=== PATIENT | male | born 1945 | race Caucasian/White ===

== ENCOUNTER 2020-10-31 09:04 | Observation (INO) | payer MEDICARE, SELFPAY ==
[2020-10-31] VITALS (14 sets, daily range): BP systolic 161–203; BP diastolic 82–122; PULSE 72–90; RESP 14–18; TEMP 36.4–36.8; O2SAT 95–100; BMI 24.0
--- NOTE | 2020-10-31 09:20 | ECG_ITS ---
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 Measurements Intervals [place] Rate: 75 P: 34 IN: 162 QRS: 8 QRSD: 98 T: 58 QT: 396 QTc: 445 Interpretive Statements SINUS RHYTHM INCOMPLETE RIGHT BUNDLE BRANCH BLOCK [90+ ms QRS DURATION, TERMINAL R IN V1/V2, 40+ ms S IN I/aVL/V4/V5/V6] No previous ECG available for comparison Electronically Signed On 10-31-2020 19:14:38 CDT by Clark Stephens M.D. [email or web address] gulfportChroma Energyglenbeigh [email or web address]/store/[id number] f
--- NOTE | 2020-10-31 09:20 | XR_ITS ---
WS: [id number] Exam: XR chest 1V portable [id number] Date/Time of Exam: 10/31/2020 9:25 AM Reason For Exam: chest pain Comparison 04/14/2013. The lungs are fully expanded. No acute infiltrates are seen. No pleural effusions. The mediastinum an d osseous thorax are unremarkable. Chronic interstitial changes. XR/XR chest 1V portable [id number] IMPRESSION: 1. No acute cardiopulmonary finding.
--- NOTE | 2020-10-31 09:45 | ED_ITS ---
HPI - Chest Pain General: Chief Complaint: Chest Pain Stated Complaint: HEART RACING/ SHOULDER PAIN/ HTN Time Seen by Provider: 10/31/20 09:06 History of Present Illness: HPI narrative: 75-year-old male comes in complaining of left shoulder pain. 4 days ago he was hauling some bricks he was loading of bricks to move them while he was doing that he did not have any chest pain or shortness of breath. He stated about 8 hours later he started having some left shoulder pain. He did not get short of breath with it did not get sick to his stomach or diaphoretic. He still has some discomfort in his left shoulder with particular movements but if he rests he has no significant pain. He does have a history of hypertension is extremely hypertensive on arrival here is not been taking any medicines for about the last 6 to 7 years. He denies any chest pain with exertion. He denies any history of heart disease he is not diabetic. Onset (ago): day(s) Timing of current episode: episodic Onset: other (8 hours after heavy lifting) Pain location: other (Left shoulder only with range of motion) Relieving factors: remaining still Exacerbating factors: movement (Movement of the left shoulder especially extension or adduction across the chest) Associated symptoms: Deny abdominal pain, diaphoresis, dyspnea, fever(s), leg edema, nausea, palpitations, sense of impending doom, syncope or vomiting Review of Systems Const: Denies: fever(s) or diaphoresis ENMT: Denies: throat pain, ear or mastoid pain, nasal discharge or nasal congestion Card: Denies: palpitations or syncope Resp: Denies: dyspnea GI: Denies: abdominal pain, nausea or vomiting : Denies: flank pain, dysuria, urinary frequency or urinary urgency Skin/Breast: Denies: rash or pruritus PFS ED PFSH: Medical History Hypertension Physical Exam Const: COMMON NORMALS: no acute distress GENERAL APPEARANCE: cooperative and comfortable ORIENTATION/CONSCIOUSNESS: Yes awake, Yes oriented to person, Yes oriented to place and Yes oriented to time HENMT: COMMON NORMALS: normocephalic, atraumatic, hearing grossly normal bilaterally, external ears normal, EAC's normal, TM's normal bilaterally, Normal nasal mucous membranes and turbinates present, moist oral mucous membranes and oropharynx normal HEAD & SCALP: normocephalic and atraumatic NOSE: Normal nasal mucous membranes and turbinates present EXTERNAL EAR: Yes external ears normal EXTERNAL AUDITORY CANAL: EAC's normal TYMPANIC MEMBRANE: TM's normal bilaterally Eye: COMMON NORMALS: Equal, round and reactive pupils present, EOMs intact bilaterally, conjunctivae normal and no scleral icterus CONJUNCTIVA: Yes conjunctivae normal PUPIL: Yes Equal, round and reactive pupils present Neck/C-Spine: COMMON NORMALS: full ROM, no lymphadenopathy, supple and no JVD Lymph: LYMPHATIC: no lymphadenopathy noted and no lymphedema noted Resp: COMMON NORMALS: normal respiratory effort, No retractions, No use of accessory muscles and clear to auscultation bilaterally AUSCULTATION: clear to auscultation bilaterally Cardio: COMMON NORMALS: no JVD, regular rate, regular rhythm and No murmurs present (Cardio) RATE: regular rate RHYTHM: regular rhythm GI: COMMON NORMALS: Soft to palpation and No hepatosplenomegaly present AUSCULTATION: Yes normoactive bowel sounds PALPATION: Yes Soft to palpation, No Tenderness to palpation present (GI), No Guarding due to palpation present (GI) and Yes No hepatosplenomegaly present Extremity: COMMON NORMALS: normal to inspection, capillary refill normal, no clubbing, cyanosis or edema, no calf tenderness and no pedal edema NARRATIVE EXTREMITY EXAM: Pain with palpation over the biceps tendon at the subtendon groove, negative impingement sign on internal or external rotation Neuro: SENSORIUM/ORIENTATION: Yes oriented to person, Yes oriented to place and Yes oriented to time Skin: COMMON NORMALS: no rashes or lesions noted GENERAL SKIN EXAM: no rashes or lesions noted Course Vital Signs: Vital signs: Vital Signs Temperature 97.6 F 11/01/20 15:31 Pulse Rate 83 11/01/20 15:31 Respiratory Rate 18 11/01/20 15:31 Blood Pressure 166/96 11/01/20 15:31 Pulse Oximetry 97 11/01/20 15:31 MDM - Chest Pain MDM Narrative: Medical decision making narrative: Discussed results we will discharge the patient home if he has any recurrent symptoms return. We will also increase his blood pressure medicines. I believe the discomfort he is getting is primarily from his biceps tendon. Lab Data: Labs: Lab Results 10/31/20 10/31/2021 Range/Units 09:45 09:45 09:45 WBC 6.5 (4.0-10.0) 10^3/ uL RBC 5.13 (4.1-5.3) 10^6/u L Hgb 16.6 (11.7-16.6) g/dL Hct 48.0 (42.0-52.0) % MCV 93.6 (80-94) fL MCH 32.4 (28.0-34.0) pg MCHC 34.6 (30.0-36.0) g/dL RDW 11.2 L (12.1-15.1) % Plt Count 204 (130-400) 10^3/c mm MPV 10.5 H (7.4-10.4) fL Neut % (Auto) 52.8 % Lymph % (Auto) 35.2 % [place] % (Auto) 8.7 % Eos % (Auto) 2.0 % Baso % (Auto) 0.8 % Neut # (Auto) 3.41 (1.8-7.7) 10^3/u L Lymph # (Auto) 2.3 (0.8-4.8) 10^3/u L [place] # (Auto) 0.6 (0.2-0.9) 10^3/u L Eos # (Auto) 0.1 (0.0-0.8) 10^3/u L Baso # (Auto) 0.1 (0.0-0.1) 10^3/u L Nucleated RBC % (a uto) 0 % Nucleated RBCs # 0.0 /100WBC Sodium 140 (136-145) mmol/L Potassium 4.1 (3.5-5.1) mmol/L Chloride 103 (98-107) mmol/L Carbon Dioxide 26 (22-29) mmol/L Anion Gap 15.1 (5-19) BUN 14 (8-23) mg/dL Creatinine 0.9 (0.7-1.2) mg/dL GFR Calculation Not Reportable Glucose 144 H (65-115) mg/dL Calculated Osmolal ity 293 (285-295) mOsm/k g Calcium 8.8 (8.5-10.5) mg/dL Total Bilirubin 0.5 (0.15-1.2) mg/dL AST 25 (0-40) U/L ALT 27 (0-41) U/L Alkaline Phosphata se 84 (40-130) IU/L Troponin T Baselin e 11 (0-15) ng/L Troponin T 120 Min reema (0-15) ng/L Delta Troponin T (0-10) ABS# Total Protein 7.3 (6.6-8.7) g/dL Albumin 4.3 (3.5-5.2) g/dL Globulin 3.0 (1.3-4.6) g/dL 10/31/20 Range/Units 11:28 WBC (4.0-10.0) 10^3/ uL RBC (4.1-5.3) 10^6/u L Hgb (11.7-16.6) g/dL Hct (42.0-52.0) % MCV (80-94) fL MCH (28.0-34.0) pg MCHC (30.0-36.0) g/dL RDW (12.1-15.1) % Plt Count (130-400) 10^3/c mm MPV (7.4-10.4) fL Neut % (Auto) % Lymph % (Auto) % [place] % (Auto) % Eos % (Auto) % Baso % (Auto) % Neut # (Auto) (1.8-7.7) 10^3/u L Lymph # (Auto) (0.8-4.8) 10^3/u L [place] # (Auto) (0.2-0.9) 10^3/u L Eos # (Auto) (0.0-0.8) 10^3/u L Baso # (Auto) (0.0-0.1) 10^3/u L Nucleated RBC % (a uto) % Nucleated RBCs # /100WBC Sodium (136-145) mmol/L Potassium (3.5-5.1) mmol/L Chloride (98-107) mmol/L Carbon Dioxide (22-29) mmol/L Anion Gap (5-19) BUN (8-23) mg/dL Creatinine (0.7-1.2) mg/dL GFR Calculation Glucose (65-115) mg/dL Calculated Osmolal ity (285-295) mOsm/k g Calcium (8.5-10.5) mg/dL Total Bilirubin (0.15-1.2) mg/dL AST (0-40) U/L ALT (0-41) U/L Alkaline Phosphata se (40-130) IU/L Troponin T Baselin e (0-15) ng/L Troponin T 120 Min reema 15.45 H (0-15) ng/L Delta Troponin T 4.45 (0-10) ABS# Total Protein (6.6-8.7) g/dL Albumin (3.5-5.2) g/dL Globulin (1.3-4.6) g/dL Discharge Plan Discharge Patient Disposition: Home Clinical Impression: Atypical chest pain, Hypertension, Biceps tendinitis of left shoulder Condition: Stable Discharge Orders: Discharge Order (Routine); Ordered 11/01/20 Ordered By: Danyell Bonilla Discharge ED (Routine); Ordered 10/31/20 Ordered By: Jesse Haro Discharge Diet: Usual diet Discharge Activity: Limit activity as instructed Coding Level of Care Code ED Kindergartner for Rupeshg Fwd Exam Comprehensive
--- NOTE | 2020-10-31 09:48 | XR_ITS ---
WS: [id number] Exam: XR shoulder LT min 2V* [id number] Date/Time of Exam: 10/31/2020 9:52 AM Reason For Exam: Pain No acute fracture or dislocation noted. 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 Norm al soft tissues. XR/XR shoulder LT min 2V* [id number] IMPRESSION: 1. Moderate degenerative changes. No fracture.
[2020-10-31 09:57] LABS: Basophils # 0.1 10^3/uL (0.0-0.1); Basophils % 0.8 %; Eosinophils # 0.1 10^3/uL (0.0-0.8); Hemoglobin 16.6 g/dL (11.7-16.6); Lymphocytes # 2.3 10^3/uL (0.8-4.8); Lymphocytes % 35.2 %; Mean Corpuscular HGB Conc 34.6 g/dL (30.0-36.0); Mean Corpuscular Hemoglobin 32.4 pg (28.0-34.0); Mean Corpuscular Volume 93.6 fL (80-94); Mean Platelet Volume 10.5 fL (7.4-10.4); Monocytes # 0.6 10^3/uL (0.2-0.9); Monocytes % 8.7 %; Neutrophils # 3.41 10^3/uL (1.8-7.7); Neutrophils % 52.8 %; Nucleated Red Blood Cells % 0 %; Platelet Count 204 10^3/cmm (130-400); Red Blood Count 5.13 10^6/uL (4.1-5.3); Red Cell Distribution Width 11.2 % (12.1-15.1); White Blood Count 6.5 10^3/uL (4.0-10.0)
[2020-10-31 10:20] LABS: Alanine Aminotransferase 27 U/L (0-41); Albumin Level 4.3 g/dL (3.5-5.2); Alkaline Phosphatase 84 IU/L (40-130); Anion Gap 15.1 (5-19); Aspartate Amino Transferase 25 U/L (0-40); Blood Urea Nitrogen 14 mg/dL (8-23); Calcium 8.8 mg/dL (8.5-10.5); Carbon Dioxide 26 mmol/L (22-29); Chloride 103 mmol/L (98-107); Glucose 144 mg/dL (65-115); Osmolality Calculated 293 mOsm/kg (285-295); Potassium 4.1 mmol/L (3.5-5.1); Sodium 140 mmol/L (136-145); Total Bilirubin 0.5 mg/dL (0.15-1.2); Total Protein 7.3 g/dL (6.6-8.7)
[2020-10-31 10:21] LABS: Troponin(5th) Baseline 11 ng/L (0-15)
--- NOTE | 2020-10-31 11:20 | ECG_ITS ---
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 Measurements Intervals [place] Rate: 71 P: 38 MD: 174 QRS: 22 QRSD: 92 T: 68 QT: 413 QTc: 450 Interpretive Statements SINUS RHYTHM Compared to ECG 10/31/2020 09:36:27 Incomplete right bundle-branch block no longer present Electronically Signed On 10-31-2020 19:16:52 CDT by Clark Stephens M.D. [id number]
[2020-10-31 12:13] LABS: Troponin 5 2HR 15.45 ng/L (0-15); Troponin 5 2HR Delta 4.45 ABS# (0-10)
[2020-10-31] MEDS: ketorolac 30 mg/mL INJ 15 MG IVP (12:36)
--- NOTE | 2020-10-31 15:03 | PC.NURSE ---
Report called to Mile CONNORS.
--- NOTE | 2020-10-31 15:20 | ECG_ITS ---
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 Measurements Intervals [place] Rate: 74 P: 55 MT: 178 QRS: 45 QRSD: 89 T: 68 QT: 399 QTc: 443 Interpretive Statements SINUS RHYTHM WITH SINUS ARRHYTHMIA Compared to ECG 10/31/2020 12:32:17 No significant changes Electronically Signed On 11-09-2020 12:29:13 CDT by Dionne Camara M.D. [email or web address] [id number]
[2020-10-31] MEDS: amlodipine 10 mg Tablet PO (15:29)
[2020-10-31 17:11] LABS: Troponin 5 6HR 11.09 ng/L (0-15); Troponin 5 6HR Delta 0.09 ng/L (0-12)
--- NOTE | 2020-10-31 18:40 | PC.NURSE ---
Report to Riley MEYER at this time. Updated Riley that at 1730 Dr. Bonilla was notified about patient's high blood pressure and stated that she would put in more medication orders. No new orders have been received at this time.
--- NOTE | 2020-10-31 19:11 | PM.HP ---
Providers/Chief Complaint Admitting Physician: Danyell Bonilla MD Primary Care Provider: CECILIA AdameP-C Chief Complaint: HEART RACING/ SHOULDER PAIN/ HTN History of Present Illness Aj Dominguez is a 75 year old male presented to the ER today complaining of 4 to 5 days of left shoulder pain that started after he was moving heavy bricks at home. Symptoms started the next morning. States that his shoulder movements are painful. He was concerned about pain being cardiac in nature and therefore arrived at the ER. He was noted to have hypertensive urgency with blood pressure 210/110 mmHg. At the time of my evaluation it is 199/109. He denies any dyspnea chest pain or palpitations. Shoulder x-ray did not show any acute fractures. Chest x-ray was unremarkable. Troponin series with unremarkable delta. EKG without acute ST-T wave changes. Review of Systems General: Reports: 10 or more systems reviewed and unremarkable except in HPI and below Const: Denies: fever(s), chills or body aches Eyes: Denies: change in vision, blurry vision or photophobia ENMT: Reports: hoarseness; Denies: throat pain, enlarged tonsils, odynophagia or nasal congestion Card: Denies: chest pain, palpitations, irregular heart rhythm, edema, swelling of feet/ankles, lightheadedness, pre-syncope, dyspnea on exertion or orthopnea Resp: Denies: dyspnea, productive cough, non-productive cough, wheezing, stridor, pain on inspiration, change in phlegm color, hemoptysis or chest congestion GI: Denies: abdominal pain, nausea, vomiting, hematemesis, coffee ground emesis, dysphagia, heartburn, diarrhea, constipation, GI cramping, change in stool character, hematochezia or melena : Denies: flank pain, dysuria, urinary frequency, urinary urgency, urinary hesitancy or hematuria Musc: Denies: neck pain, back pain, extremity pain, joint swelling, joint warmth or deformity Neuro: Denies: headache(s), numbness in extremities, weakness in extremities, sensory changes, difficulty walking, frequent falls, dizziness, vertigo, behavioral changes, Slurred speech present or seizure-like activity Psych: Denies: anxiety, depression, suicidal ideation or homicidal ideation Endo: Denies: polyuria, polydipsia, tired all the time, cold intolerance or hot flashes Jc/Lymph: Denies: easy bruising or easy bleeding Medications/Allergies Home Medications Medication Instructions Recorded Confirmed Last Taken Type amlodipine 5 mg PO DAILY #30 tab 10/31/20 Unknown Rx aspirin 81 mg PO DAILY #30 tab 10/31/20 Unknown Rx diclofenac sodium 75 mg PO Q12H PRN #20 tab 10/31/20 Unknown Rx Allergies Allergy/AdvReac Type Severity Reaction Status Date / Time No Known Allergies Allergy Verified 10/31/20 09:15 PFSH Acute PFSH: Medical History Hypertension Vitals/I&O/Wt Last Vital Signs Temp 97.5 F L 10/31/20 16:00 Pulse 72 10/31/20 16:00 Resp 17 10/31/20 16:00 BP 182/94 10/31/20 17:00 Pulse Ox 99 10/31/20 16:00 10/31/20 10/31/20 10/31/20 06:59 14:59 22:59 Intake Total 240 / 240 Balance 240 / 240 Weight last 48 hrs Weight 79.379 kg Physical Exam Narrative: EXAM NARRATIVE: General: No acute distress, AO x3 HEENT: PERRLA, pupils bilaterally equal and reactive, pallors not present Chest: Normal vesicular breath sounds, no added sounds, equal good air entry bilaterally CVS: S1-S2 regular, no murmurs, no tachycardia, no gallops, no rubs Abdomen: Soft, nontender, no organomegaly, bowel sounds present Neuro: No focal deficits, no facial deformity, AO x3, power 5/5 in all limbs Extremities: Pain on movement of left shoulder Data : 10/31/20 09:45 10/31/20 09:45 A&P Assessment and plan (1) Hypertensive urgency: Presented with atypical chest pain initially , whoch appears to be musculoskeletal in nature Troponin series negative, EKG without acute ST-T wave changes, unlikely ACS Hypertensive urgency with BP up to 220/110 which may be contributing to smptoms Start [id number] stat along with lisinopril 10mg daily, add prn hydralazine Monitor BP closely has a past h/o HTN, does not usually check BP at home Status: Acute Attestations Medical Necessity Statement*: hypertensive urgency, less than 48 hrs anticipated for management and BP control Coding Level of Care Code Acute Rn Immunology for g Fwd Diagnoses Hypertensive urgency I16.0
[2020-10-31] MEDS: lisinopril 10 mg Tablet PO (20:50)
[2020-11-01 03:57] VITALS: BP 154/87; PULSE 80; RESP 18; TEMP 36.8; O2SAT 96
[2020-11-01 06:00] VITALS: PULSE 66
[2020-11-01 08:00] VITALS: BP 135/85; PULSE 79; RESP 18; TEMP 36.6; O2SAT 97
[2020-11-01] MEDS: pantoprazole DR 40 mg Tablet PO (08:34)
[2020-11-01] MEDS: lisinopril 10 mg Tablet PO (08:34)
[2020-11-01] MEDS: amlodipine 10 mg Tablet PO (08:34)
[2020-11-01 11:33] VITALS: BP 166/96; PULSE 83; RESP 18; TEMP 36.4; O2SAT 97
--- NOTE | 2020-11-01 14:39 | PM.DCS ---
Discharge Providers Date of Admission: 10/31/20 14:58 Date of Discharge: November 01, 2020 Attending Provider at Admission: Danyell Bonilla MD Attending Provider at Discharge: Danyell Bonilla MD Primary Care Provider: ROSS Adame Diagnoses at Discharge Discharge Diagnosis (1) Hypertensive urgency: Status: Acute Reason for Visit Reason for Visit: HEART RACING/ SHOULDER PAIN/ HTN Hospital Course Hospital Course Aj Dominguez is a 75 year old male presented to the ER today complaining of 4 to 5 days of left shoulder pain that started after he was moving heavy bricks at home. Symptoms started the next morning. States that his shoulder movements are painful. He was concerned about pain being cardiac in nature and therefore arrived at the ER. He was noted to have hypertensive urgency with blood pressure 210/110 mmHg.Shoulder x-ray did not show any acute fractures. Chest x-ray was unremarkable. Troponin series with unremarkable delta. EKG without acute ST-T wave changes. Overall his symptoms appear to be most consistent with tendinitis and/or possible arthritis around the left shoulder. ACS was ruled out. Patient reports that he has not been taking his blood pressure medication in several months, has not recently followed with PCP. Amlodipine 10 mg and lisinopril 5 mg are being added at discharge, at the time of discharge blood pressure is ranging 1 50-1 60 systolic. Recommended to keep a blood pressure chart over the next 7 to 10 days and bring it to next appointment with his primary care physician. Explained the importance of follow-up for blood pressure. Physical Exam Narrative: EXAM NARRATIVE: GEN: Awake, alert and oriented, no acute distress CVS: S1S2 N RS: CTA B/L Abd: Soft, nt/nd , bs+ CERTIFIED PERSONAL CHEF: no focal neuro deficits Discharge Data Data Completed and Pending: Completed Studies During Hospitalization Category Date Time Status XR chest 1V mary ble [id number] Stat Exams 10/31/20 09:20 Completed XR shoulder LT mi n 2V* [id number] Stat Exams 10/31/20 09:48 Completed Labs from last 24 hours 10/31/20 16:23 Troponin T Hi Sens 6Hr 11.09 Troponin T Hi Sens 6Hr Delta 0.09 Addt'l Data from Hospital Stay: Laboratory Results WBC 6.5 10^3/uL (4.0- 10.0) 10/31/20 09:45 RBC 5.13 10^6/uL (4.1 -5.3) 10/31/20 09:45 Hgb 16.6 g/dL (11.7-1 6.6) 10/31/20 09:45 Hct 48.0 % (42.0-52.0 ) 10/31/20 09:45 MCV 93.6 fL (80-94) 10/31/20 09:45 MCH 32.4 pg (28.0-34. 0) 10/31/20 09:45 MCHC 34.6 g/dL (30.0-3 6.0) 10/31/20 09:45 RDW 11.2 % (12.1-15.1 ) L 10/31/20 09:45 Plt Count 204 10^3/cmm (130 -400) 10/31/20 09:45 MPV 10.5 fL (7.4-10.4 ) H 10/31/20 09:45 Neut % (Auto) 52.8 % 10/31/20 09:45 Lymph % (Auto) 35.2 % 10/31/20 09:45 [place] % (Auto) 8.7 % 10/31/20 09:45 Eos % (Auto) 2.0 % 10/31/20 09:45 Baso % (Auto) 0.8 % 10/31/20 09:45 Neut # (Auto) 3.41 10^3/uL (1.8 -7.7) 10/31/20 09:45 Lymph # (Auto) 2.3 10^3/uL (0.8- 4.8) 10/31/20 09:45 [place] # (Auto) 0.6 10^3/uL (0.2- 0.9) 10/31/20 09:45 Eos # (Auto) 0.1 10^3/uL (0.0- 0.8) 10/31/20 09:45 Baso # (Auto) 0.1 10^3/uL (0.0- 0.1) 10/31/20 09:45 Nucleated RBC % (a uto) 0 % 10/31/20 09:45 Nucleated RBCs # 0.0 /100WBC 10/31/20 09:45 Sodium 140 mmol/L (136-1 45) 10/31/20 09:45 Potassium 4.1 mmol/L (3.5-5 .1) 10/31/20 09:45 Chloride 103 mmol/L (98-10 7) 10/31/20 09:45 Carbon Dioxide 26 mmol/L (22-29) 10/31/20 09:45 Anion Gap 15.1 (5-19) 10/31/20 09:45 BUN 14 mg/dL (8-23) 10/31/20 09:45 Creatinine 0.9 mg/dL (0.7-1. 2) 10/31/20 09:45 GFR Calculation Not Reportable 10/31/20 09:45 Glucose 144 mg/dL (65-115 ) H 10/31/20 09:45 Calculated Osmolal ity 293 mOsm/kg (285- 295) 10/31/20 09:45 Calcium 8.8 mg/dL (8.5-10 .5) 10/31/20 09:45 Total Bilirubin 0.5 mg/dL (0.15-1 .2) 10/31/20 09:45 AST 25 U/L (0-40) 10/31/20 09:45 ALT 27 U/L (0-41) 10/31/20 09:45 Alkaline Phosphata se 84 IU/L (40-130) 10/31/20 09:45 Troponin T Baselin e 11 ng/L (0-15) 10/31/20 09:45 Troponin T 120 Min reema 15.45 ng/L (0-15) H 10/31/20 11:28 Delta Troponin T 4.45 ABS# (0-10) 10/31/20 11:28 Troponin T Hi Sens 6Hr 11.09 ng/L (0-15) 10/31/20 16:23 Troponin T Hi Sens 6Hr Delta 0.09 ng/L (0-12) 10/31/20 16:23 Total Protein 7.3 g/dL (6.6-8.7 ) 10/31/20 09:45 Albumin 4.3 g/dL (3.5-5.2 ) 10/31/20 09:45 Globulin 3.0 g/dL (1.3-4.6 ) 10/31/20 09:45 Impressions Chest X-Ray 10/31/20 09:20 IMPRESSION: 1. No acute cardiopulmonary finding. Shoulder X-Ray 10/31/20 09:48 IMPRESSION: 1. Moderate degenerative changes. No fracture. Vitals: Last Vital Signs Temp 97.6 F 11/01/20 11:33 Pulse 83 11/01/20 11:33 Resp 18 11/01/20 11:33 BP 166/96 11/01/20 11:33 Pulse Ox 97 11/01/20 11:33 Discharge Plan Discharge Patient Disposition: Home Condition: Stable Prescriptions: New aspirin 81 mg tablet,delayed release (DR/EC) 81 mg PO DAILY Qty: 30 RF: 0 amlodipine 10 mg Tablet 10 mg PO DAILY 30 Days Qty: 30 RF: 0 pantoprazole 40 mg Tablet,Delayed Release (Dr/Ec) 40 mg PO DAILY 15 Days Qty: 15 RF: 0 lisinopril 10 mg Tablet 10 mg PO DAILY 30 Days Qty: 30 RF: 0 (DME) blood pressure monitor [Blood Pressure Kit] Kit See Rx Instructions .Route Qty: 1 RF: 0 Discharge Orders: Discharge Order (Routine); Ordered 11/01/20 Ordered By: Danyell Bonilla Referrals: Zack Wynn, [facility] LAMINATOR OPER[facility]ORDianeC [Primary Care Provider] - 7-10 days Discharge Diet: Usual diet Discharge Activity: Limit activity as instructed Patient Instructions: Opioid Safety Activity Restrictions/Additional Instructions: Follow-up with your primary care doctor to reevaluate your blood pressure and your shoulder if it is not improving. Maintain BP chart as explained Discharge Attestations Time Spent in Discharge Care*: greater than 30 min Quality Metrics Clinical Quality Measures During this hospital stay, did patient experience: None Coding Level of Care Code Acute [facility] DEISY note Diagnoses Hypertensive urgency I16.0
[2020-11-01 15:31] VITALS: BP 166/96; PULSE 83; RESP 18; TEMP 36.4; O2SAT 97
--- NOTE | 2020-11-01 15:32 | PC.NURSE ---
Discharge reviewed with patient at this time. Patient verbalized understanding of discharge instructions and of all prescriptions. Patient verbalized understanding of making follow up appointment in 7 to 10 days. IV removed intact. Patient is A&Ox3. Respirations even and non-labored on room air. Patient ambulated to private car.
== END 2020-11-01 15:32 | disposition home or self-care (01) ==
LOC: ER 12:22 → CSU 11-01 06:45 → MEDSURG 11-01 06:45
PROVIDERS: Admitting Provider Student in an Organized Health Care Education/Training Program; Emergency Provider Family Medicine; PCP Nurse Practitioner; Visit Provider Student in an Organized Health Care Education/Training Program
DX: I16.0 Hypertensive urgency (principal)
CPT/HCPCS: 36415; 71045; 73030; 80053; 84484; 85025; 93005; 96374; 99285; G0378; J1885

== ENCOUNTER → 2020-11-17 16:13 | Outpatient (BNVA) | payer MEDICARE, SELFPAY | PROVIDERS: PCP Nurse Practitioner; Visit Provider Nurse Practitioner | DX: R73.9 Hyperglycemia, unspecified (principal); I10 Essential (primary) hypertension | CPT/HCPCS: 83036 ==

== ENCOUNTER 2024-03-31 18:57 | Emergency (ER) | payer MEDICARE, SELFPAY ==
[2024-03-31 18:57] VITALS: BP 227/110; PULSE 86; RESP 18; TEMP 36.4; O2SAT 98; BMI 23.0
--- NOTE | 2024-03-31 19:02 | CTR_ITS ---
PROCEDURE INFORMATION: Exam: CT Head Without Contrast Exam date and time: 03/31/2024 6:56 PM Age: 79 years old Clinical indication: Stroke-like symptoms; Altered mental status/memory loss; Lt upper extremity and lt lower extremity weakness; Additional info: AMS TECHNIQUE: Imaging protocol: Computed tomography of the head without contrast. Radiation optimization: All CT scans at this facility use at least one of these dose optimization techniques: automated exposure control; mA and/or kV adjustment per patient size (includes targeted exams where dose is matched to clinical indication); or iterative reconstruction. Other technique: STROKE PROTOCOL was implemented. COMPARISON: No relevant prior studies available. RADIATION DOSE METRICS: Total DLP (mGy-cm): 1080.09 FINDINGS: Brain: There is white matter lucency consistent with chronic microvascular disease. There is an old left frontal cortical infarct. There is a smaller old left parietal cortical infarct. There are bilateral old basal ganglia lacunar infarcts. There is an acute right thalamic hemorrhage measuring 11 x 11 x 11 mm. No additional hemorrhage. No midline shift. No extra-axial collection. Cerebral ventricles: Ventricular size is proportionate to volume loss. No intraventricular hemorrhage. Paranasal sinuses: Visualized sinuses are unremarkable. No fluid levels. Mastoid air cells: Visualized mastoid air cells are well aerated. Bones: Unremarkable. No acute fracture. Soft tissues: Unremarkable. CT/CT head thrombolytic [id number] IMPRESSION: 1. 11 x 11 x 11 mm acute right thalamic hemorrhage. 2. 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 ASSESSMENT: ASPECTS ([place] Stroke Program Early CT Score) is 10.
--- NOTE | 2024-03-31 19:07 | XRR_ITS ---
PROCEDURE INFORMATION: Exam: XR Chest Exam date and time: 03/31/2024 7:21 PM Age: 79 years old Clinical indication: Other: Neuro deficit, stroke alert TECHNIQUE: Imaging protocol: Radiologic exam of the chest. Views: 1 view. COMPARISON: CR XR chest 1V portable [id number] 10/31/2020 9:22 AM FINDINGS: Lungs: Unremarkable. No consolidation. Pleural spaces: Unremarkable. No pleural effusion. No pneumothorax. Heart/Mediastinum: Unremarkable. No cardiomegaly. Bones/joints: Unremarkable. XR/XR chest 1V portable [id number] IMPRESSION: No acute findings.
[2024-03-31 19:10] VITALS: BP 227/110
--- NOTE | 2024-03-31 19:10 | ED_ITS ---
HPI - Neuro Symptoms/Deficit 2 General: Chief Complaint: Neuro Symptoms/Deficit Stated Complaint: stroke alert Time Seen by Provider: 03/31/24 19:06 History of Present Illness: Code stroke activated. EMS arrived with the patient from home having said signs and symptoms of a stroke that started at 1700 tonight. Last known well was 1700 tonight. EMS stated he had some left arm droop left facial droop and left-sided numbness with left dragging of his leg. Upon arrival to the ER patient only had minimal left facial droop. Good strength in all 4 extremities with no other localizing signs. CT scan was immediately performed which showed a small bleed on the right anterior brain. Dr. Mistry was called and notified. Patient is not a TNKase candidate at this time. Patient stated several years ago he stopped all his medicine which she should have been on amlodipine and lisinopril for high blood pressure. Patient's blood pressure upon arrival was 227/110. He stated that he read somewhere that these medicines have poison in them and he did not want to take them. Related Data Home Medications Medication Instructions Recorded Confirmed pantoprazole 40 mg tablet,delayed 40 mg PO DAILY 11/17/20 11/17/20 release Previous Rx's Medication Instructions Recorded blood pressure monitor (Blood #1 ea 11/01/20 Pressure Kit) amlodipine 10 mg tablet 10 mg PO DAILY 30 days #30 tabs 02/28/21 lisinopril 20 mg tablet 20 mg PO DAILY 30 days #10 tabs 05/02/21 Allergies Allergy/AdvReac Type Severity Reaction Status Date / Time No Known Allergies Allergy Verified 10/31/20 09:15 Review of Systems 2 General: Reports: 10 or more systems reviewed and unremarkable except in HPI and below PFSH ED 2 PFSH: Medical History Hypertension Surgical History History of tonsillectomy Family History Other Cancer Stroke Denies family history of Diabetes Dementia Anesthesia complication Hypertension Social History Smoking and tobacco/nicotine status: former use of tobacco/nicotine Second hand smoke exposure: No Alcohol intake: former Substance/Drug Use: unknown Adopted: No Caregiver/support person: No Lives independently: Yes Household members: spouse Housing: House Marital status: Number of children: 3 service: Yes branch: [employer] Current occupational status: retired Do you think of yourself as: Straight/Heterosexual Current gender identity: Male NIH stroke score 2 NIHSS: Level Of Consciousness - 1a: 0 Level Of Consciousness Questions - 1b: Both Correct Level Of Consciousness Commands - 1c: Both Correct Best Gaze - 2: Normal Visual Barrientos - 3: No Visual Loss Facial Palsy - 4: Minor Paralysis Motor Arm Right - 5: No Drift Motor Arm Left - 5: No Drift M otor Leg Right - 6: No Drift Motor Leg Left - 6: No Drift Limb Ataxia - 7: Absent Sensory - 8: Mild To Moderate Loss Best Language - 9: No Aphasia Dysarthia - 10: Normal Extinction And Inattention - 11: 0 Score: Total Score: 2 Physical Exam 2 Const: COMMON NORMALS: no acute distress, average body habitus, patient oriented x3, no limitations, healthy appearing, alert and well nourished HENMT: COMMON NORMALS: normocephalic, atraumatic, hearing grossly normal bilaterally, external ears normal, Normal external nose present and moist oral mucous membranes HEAD & SCALP: normocephalic and atraumatic NOSE: Normal external nose present EXTERNAL EAR: Yes external ears normal Eye: COMMON NORMALS: Equal, round and reactive pupils present, EOMs intact bilaterally, conjunctivae normal and no scleral icterus CONJUNCTIVA: Yes conjunctivae normal PUPIL: Yes Equal, round and reactive pupils present Neck/C-Spine: COMMON NORMALS: full ROM, no lymphadenopathy, supple, no meningeal signs, no JVD and Thyroid normal THYROID: Thyroid normal Chest: COMMONS NORMALS: normal inspection of the chest and normal palpation of entire chest wall Resp: COMMON NORMALS: normal respiratory effort, No retractions, No use of accessory muscles and clear to auscultation bilaterally AUSCULTATION: clear to auscultation bilaterally Cardio: COMMON NORMALS: no JVD, regular rate, regular rhythm, S1 normal heart sound present, S2 normal heart sound present, No gallops present (Cardio), No clicks present (Cardio), No murmurs present (Cardio) and No rub (Cardio) R ATE: regular rate RHYTHM: regular rhythm HEART SOUNDS: S1 normal heart sound present and S2 normal heart sound present GI: COMMON NORMALS: Normal to inspection, nondistended, normoactive bowel sounds present, Soft to palpation, non-tender, No hepatosplenomegaly present and no masses PALPATION: Yes Soft to palpation and Yes No hepatosplenomegaly present Neuro: COMMON NORMALS: patient oriented x3 SENSORIUM/ORIENTATION: Yes alert MENINGEAL SIGNS: Yes no meningeal signs Course 2 Vital Signs: Vital signs: Vital Signs Temperature 97.6 F 03/31/24 18:57 Pulse Rate 86 03/31/24 18:57 Respiratory Rate 18 03/31/24 18:57 Blood Pressure 227/110 03/31/24 18:57 Pulse Oximetry 98 03/31/24 18:57 MDM - Neuro Symptoms/Deficit Medical Decision Making CT showed right thalamic hemorrhagic stroke 11 x 11 x 11, these results was discussed with Dr. Mistry, we will transfer the patient to [facility]. Dr. Kevyn Nails, was consulted who agreed to take the patient in transfer. Medical Records I reviewed the patient's medical records. Lab Data I reviewed the patient's lab results. 03/31/24 19:07 03/31/24 19:[address] 03/31/24 19:02 IMPRESSION: 1. 11 x 11 x 11 mm acute right thalamic hemorrhage. 2. 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 ASSESSMENT: ASPECTS (Elaine Stroke Program Early CT Score) is 10. ADDENDUM: 03/31/241931 THIS REPORT CONTAINS FINDINGS THAT MAY BE CRITICAL TO PATIENT CARE. The findings were verbally communicated via telephone conference with Drake Fang at 7:30 PM CDYoselyn on 03/31/2024. The findings were acknowledged and understood. Chest X-Ray 03/31/24 19:07 IMPRESSION: No acute findings. Laboratory Results WBC 10.03 10^3/uL (3.29-11.43) 03/31/24 19:07 RBC 5.13 10^6/uL (3.85-5.65) 03/31/24 19:07 Hgb 16.80 g/dL (11.27-16.99) 03/31/24 19:07 Hct 47.8 % (37-53) 03/31/24 19:07 MCV 93.2 fl (82-101) 03/31/24 19:07 MCH 32.7 pg (27-33) 03/31/24 19:07 MCHC 35.1 g/dL (30-55) 03/31/24 19:07 RDW 11.5 % (12.1-15.1) L 03/31/24 19:07 Plt Count 171 10^3/cmm (157-399) 03/31/24 19:07 MPV 10.2 fL (7.4-10.4) 03/31/24 19:07 Neut % (Auto) 59.7 % 03/31/24 19:07 Lymph % (Auto) 29.5 % 03/31/24 19:07 [place] % (Auto) 8.5 % 03/31/24 19:07 Eos % (Auto) 1.2 % 03/31/24 19:07 Baso % (Auto) 0.7 % 03/31/24 19:07 Neut # (Auto) 5.99 10^3/uL (1.8-7.7) 03/31/24 19:07 Lymph # (Auto) 3.0 10^3/uL (0.8-4.8) 03/31/24 19:07 [place] # (Auto) 0.9 10^3/uL (0.2-0.9) 03/31/24 19:07 Eos # (Auto) 0.1 10^3/uL (0.0-0.8) 03/31/24 19:07 Baso # (Auto) 0.1 10^3/uL (0.0-0.1) 03/31/24 19:07 Nucleated RBC % (auto) 0 % 03/31/24 19:07 Nucleated RBCs # 0.0 /100WBC 03/31/24 19:07 PT 13.80 SECONDS (12.1-14.9) 03/31/24 19:07 INR 1.03 (0.8-1.2) 03/31/24 19:07 APTT 37.1 SECONDS (23.9-36.7) H 03/31/24 19:07 All radiology interpretation(s) finalized by discharge Discharge Plan Discharge Patient Disposition: Xfer Short-Term Hosp Clinical Impression: Hemorrhagic stroke, Hypertension Condition: Stable Prescriptions: No Action pantoprazole 40 mg tablet,delayed release (DR/EC) 40 mg PO DAILY amlodipine 10 mg tablet 10 mg PO DAILY 30 Days Qty: 30 0RF Rx Instructions: Need apt lisinopril 20 mg tablet 20 mg PO DAILY 30 Days Qty: 10 0RF Rx Instructions: need apt (DME) Blood Pressure Kit Kit See Rx Instructions .Route Qty: 1 0RF Rx Instructions: As directed Referrals: Zack Wynn, NOVELTIES SALES REPRESENTATIVE-C [Primary Care Provider] - Coding Level of Care Code ED Business Process Specialist for Wiliam Bean
[2024-03-31 19:14] LABS: Basophils # 0.1 10^3/uL (0.0-0.1); Basophils % 0.7 %; Eosinophils # 0.1 10^3/uL (0.0-0.8); Eosinophils % 1.2 %; Hematocrit 47.8 % (37-53); Lymphocytes % 29.5 %; Mean Corpuscular HGB Conc 35.1 g/dL (30-55); Mean Corpuscular Hemoglobin 32.7 pg (27-33); Mean Corpuscular Volume 93.2 fl (82-101); Mean Platelet Volume 10.2 fL (7.4-10.4); Monocytes # 0.9 10^3/uL (0.2-0.9); Monocytes % 8.5 %; Neutrophils # 5.99 10^3/uL (1.8-7.7); Neutrophils % 59.7 %; Nucleated Red Blood Cells % 0 %; Platelet Count 171 10^3/cmm (157-399); Red Blood Count 5.13 10^6/uL (3.85-5.65); Red Cell Distribution Width 11.5 % (12.1-15.1); White Blood Count 10.03 10^3/uL (3.29-11.43)
[2024-03-31 19:33] LABS: INR 1.03 (0.8-1.2); Partial Thromboplastin Time 37.1 SECONDS (23.9-36.7)
[2024-03-31] MEDS: labetalol 5 mg/mL SDV 20mL 10 MG IV (19:45)
[2024-03-31 19:49] VITALS: BP 194/128; PULSE 90; RESP 18; O2SAT 97
--- NOTE | 2024-03-31 19:49 | ECG_ITS ---
[facility] Test Date: 2024-03-31 Pat Name: Aj Dominguez Department: Room: Gender: Male [employer] Hand: : 1945 Requested By: Drake Fang Order Number: [id number] Adriel MD: Clark Stephens M.D. Measurements Intervals [place] Rate: 82 P: 50 TN: 180 QRS: 24 QRSD: 136 T: 39 QT: 398 QTc: 466 Interpretive Statements SINUS RHYTHM RIGHT BUNDLE BRANCH BLOCK [120+ ms QRS DURATION, UPRIGHT V1, 40+ ms S IN I/aVL/V4/V5/V6] WARNING: DATA QUALITY MAY AFFECT INTERPRETATION Compared to ECG 10/31/2020 17:59:11 Right bundle-branch block now present Sinus arrhythmia no longer present Electronically Signed On 04-02-2024 18:50:16 CDT by Clark Stephens M.D. [id number]
[2024-03-31 19:52] LABS: Glucose Point of Care 110 mg/dL (70-110)
[2024-03-31 19:53] LABS: Alanine Aminotransferase 17 U/L (0-41); Albumin Level 4.2 g/dL (3.5-5.2); Alcohol Level < 10 mg/dL (0-10); Alkaline Phosphatase 105 U/L (40-130); Anion Gap 17.7 (5-19); Aspartate Amino Transferase 22 U/L (0-40); Blood Urea Nitrogen 12 mg/dL (8-23); C Reactive Protein 4.3 mg/L (0.0-4.9); Carbon Dioxide 24 mmol/L (22-29); Chloride 98 mmol/L (98-107); Creatinine Clr Calc Pharmacy 63.4286; Globulin 3.5 g/dL (1.3-4.6); Glucose 114 mg/dL (65-115); Osmolality Calculated 283 mOsm/kg (285-295); Potassium 3.7 mmol/L (3.5-5.1); Sodium 136 mmol/L (136-145); Thyroid Stimulating Hormone 3.31 uIU/mL (0.27-4.20); Total Bilirubin 0.5 mg/dL (0.15-1.2); Total Protein 7.7 g/dL (6.6-8.7)
[2024-03-31 20:08] LABS: Bilirubin Urine Negative (Negative); Blood Urine Negative (Negative); Glucose Urine UA Negative (Normal); Ketones Urine Negative (Negative); Leukocyte Esterase Urine Negative (Negative); Nitrate Urine Negative (Negative); Protein Urine Negative (Negative); Specific Gravity, Urine 1.007 (1.005-1.030); Urine Appearance Clear (CLEAR); Urine Color Yellow (Yellow); Urobilinogen Urine 0.2 mg/dL (Negative)
[2024-03-31 20:13] LABS: Add Urine Microscopic? YES; Bacteria Urine None Seen /hpf; Hyaline Casts Urine 0-4 /lpf; RBC Urine 0-2 /hpf (0-2); Squamous Epithelial Cell Urine 0-5 /hpf (0-5); WBC Urine 0-5 /hpf (0-5)
[2024-03-31 20:15] LABS: Amphetamines Screen Urine Negative (Negative); Barbiturates Screen Urine Negative (Negative); Benzodiazepines Screen Urine Negative (Negative); Cocaine Screen Urine Negative (Negative); Opiate Screen Urine Negative (Negative); PCP Screen Urine Negative (Negative); THC Screen Urine Negative (Negative)
[2024-03-31] MEDS: nicardipine 20 MG/200 ML PREMIX 50 MG IV ×2 (20:27→20:33)
[2024-03-31 20:34] VITALS: BP 191/121; PULSE 91; RESP 12; O2SAT 99
[2024-03-31 20:38] VITALS: BP 191/121; PULSE 91; RESP 12; O2SAT 98
== END 2024-03-31 20:39 | disposition short-term general hospital (02) ==
PROVIDERS: Emergency Provider Emergency Medicine; PCP Nurse Practitioner
DX: I62.9 Nontraumatic intracranial hemorrhage, unspecified (principal); Z87.891 Personal history of nicotine dependence; I10 Essential (primary) hypertension
CPT/HCPCS: 36416; 70450; 71045; 80053; 80306; 80307; 81001; 82962; 83735; 84443; 85025; 85610; 85730; 86140; 93005; 96374; 96375; 99285; J3490

== ENCOUNTER 2024-04-08 02:57 | Emergency (ER) | payer MEDICARE, SELFPAY ==
[2024-04-08 02:59] VITALS: BP 151/74; PULSE 92; RESP 18; TEMP 36.4; O2SAT 99; BMI 24.3
--- NOTE | 2024-04-08 03:56 | USR_ITS ---
PROCEDURE INFORMATION: Exam: US Duplex Left Upper Extremity Veins, Limited Exam date and time: 04/08/2024 5:17 AM Age: 79 years old Clinical indication: Pain; Arm, upper and arm, lower; Left; Additional info: L arm pain paresthesia TECHNIQUE: Imaging protocol: Real-time duplex ultrasound of the left extremity with 2-D watts scale, color Doppler flow and spectral waveform analysis including responses to compression and other maneuvers (when performed) with image documentation. Limited exam focused on the left upper extremity veins. COMPARISON: No relevant prior studies available. FINDINGS: Left deep veins: Unremarkable. Axillary and brachial veins are patent throughout without thrombus. Normal Doppler waveforms. Normal compressibility and/or augmentation response. Visualized internal jugular and subclavian veins are patent. Superficial veins: Occlusive thrombus is present within the cephalic vein. Basilic vein is patent. Soft tissues: Unremarkable. US/[place] [id number] IMPRESSION: 1. No evidence of deep vein thrombosis. 2. Occlusive thrombus in the cephalic vein. This is a superficial vessel.
[2024-04-08 04:33] VITALS: BP 155/83; PULSE 89; O2SAT 96
[2024-04-08 05:02] VITALS: BP 150/86; PULSE 89; O2SAT 97
--- NOTE | 2024-04-08 05:26 | W.ED.EXTPRO ---
HPI - Extremity Problem General: Chief complaint: Extremity Injury, Upper Stated complaint: LEFT ARM PAIN Time Seen by Provider: 04/08/24 03:34 History of Present Illness: 79-year-old gentleman with a history of intracranial hemorrhage in the thalamic region. He was recently transferred from this facility to [place]. He was admitted there, and is back now in a fpc setting here in town. He presents with a new onset of left arm burning sensation. He notes this started in the upper arm, and is now down towards the forearm and hand. He has no neck pain. No trauma. He has not fallen. Pain is not really reproducible. Related Data Home Medications Medication Instructions Recorded Confirmed pantoprazole 40 mg tablet,delayed 40 mg PO DAILY 11/17/20 11/17/20 release Previous Rx's Medication Instructions Recorded blood pressure monitor (Blood #1 ea 11/01/20 Pressure Kit) amlodipine 10 mg tablet 10 mg PO DAILY 30 days #30 tabs 02/28/21 lisinopril 20 mg tablet 20 mg PO DAILY 30 days #10 tabs 05/02/21 diclofenac sodium 1 % topical gel 2 g topical QID #100 grams 04/08/24 (Voltaren Arthritis Pain) Allergies Allergy/AdvReac Type Severity Reaction Status Date / Time No Known Allergies Allergy Verified 10/31/20 09:15 [facility] ED PFSH: Medical History Hypertension Surgical History History of tonsillectomy Family History Other Cancer Stroke Denies family history of Diabetes Dementia Anesthesia complication Hypertension Social History Smoking and tobacco/nicotine status: former use of tobacco/nicotine Second hand smoke exposure: No Alcohol intake: former Substance/Drug Use: unknown Adopted: No Caregiver/support person: No Lives independently: Yes Household members: spouse Housing: House Marital status: Number of children: 3 service: Yes branch: [employer] Current occupational status: retired Do you think of yourself as: Straight/Heterosexual Current gender identity: Male Physical Exam Const: COMMON NORMALS: no acute distress GENERAL APPEARANCE: cooperative and frail appearing; not ill appearing ORIENTATION/CONSCIOUSNESS: Yes awake, Yes oriented to person, Yes oriented to place and Yes oriented to time HENMT: COMMON NORMALS: normocephalic and atraumatic HEAD & SCALP: normocephalic and atraumatic FACE & SINUS: normal facial exam Chest: CHEST: Yes Symmetrical chest wall rise Resp: COMMON NORMALS: normal respiratory effort, No use of accessory muscles and clear to auscultation bilaterally AUSCULTATION: clear to auscultation bilaterally Cardio: COMMON NORMALS: regular rate and regular rhythm RATE: regular rate RHYTHM: regular rhythm Extremity: NARRATIVE EXTREMITY EXAM: Exam the left upper extremity reveals no deformity. There is a small reddened area over the anterior distal arm at the bicep. It is not overly tender. There are some swelling in that area. No other significant edema. Sensation is diffusely decreased throughout the arm from previous hemorrhagic stroke. Pulses are normal to the hand. Neuro: SENSORIUM/ORIENTATION: Yes oriented to person, Yes oriented to place and Yes oriented to time Course Vital Signs: Vital signs: Vital Signs Temperature 97.5 F L 04/08/24 02:59 Pulse Rate 102 H 04/08/24 07:14 Respiratory Rate 18 04/08/24 02:59 Blood Pressure 147/99 04/08/24 07:14 Pulse Oximetry 98 04/08/24 07:14 Oxygen Delivery Me thod Room Air 04/08/24 02:59 MDM - Extremity (Nontraumatic) Medical Decision Making No new neurological symptoms in this patient. He has diffuse, nonlocalizing pain to the left upper extremity. He is not on anticoagulation currently. Ultrasound of the left upper extremity has been ordered to rule out DVT. He has no other new neurological findings. No neck pain. He states that the pain is slowly improving. Ultrasound of the left upper extremity shows no DVT. But there is occlusive thrombus in the cephalic vein superficially the patient has had a recent cerebral hemorrhage, and felt not prudent to place the patient on aspirin therapy or NSAID therapy orally. He will be prescribed Voltaren gel for the area locally which should help in a similar manner. Close follow-up outpatient. Return for new symptoms. Lab Data Radiology Impressions Venous Duplex 04/08/24 03:56 IMPRESSION: 1. No evidence of deep vein thrombosis. 2. Occlusive thrombus in the cephalic vein. This is a superficial vessel. All radiology interpretation(s) finalized by discharge Discharge Plan Discharge Patient Disposition: Home Clinical Impression: Paresthesia of arm, Superficial thrombophlebitis of arm Condition: Stable Prescriptions: New diclofenac sodium [Voltaren Arthritis Pain] 1 % gel 2 g topical QID Qty: 100 0RF Rx Instructions: apply to single elbow, wrist or hand; for hand includes palm/fingers/back of hand No Action pantoprazole 40 mg tablet,delayed release (DR/EC) 40 mg PO DAILY amlodipine 10 mg tablet 10 mg PO DAILY 30 Days Qty: 30 0RF Rx Instructions: Need apt lisinopril 20 mg tablet 20 mg PO DAILY 30 Days Qty: 10 0RF Rx Instructions: need apt (DME) Blood Pressure Kit Kit See Rx Instructions .Route Qty: 1 0RF Rx Instructions: As directed Discharge Orders: Discharge ED (Routine); Ordered 04/08/24 Ordered By: Bakari Gutierrez Referrals: Zack Wynn, BOTTLE CAPPER-C [Primary Care Provider] - 1-3 days Patient Instructions: Paresthesia (ED), Opioid Safety, Pain Management Activity Restrictions/Additional Instructions: Return for fever, worsening pain, swelling of the arm, other concerning symptoms. See your doctor this week. Rub a small amount of the prescribed gel into the biceps area just proximal to the elbow in the front of the arm twice daily. Coding Level of Care Code ED Store Loss Prevention Manager for Wiliam Bean
[2024-04-08 06:31] VITALS: BP 151/85; PULSE 90; O2SAT 100
--- NOTE | 2024-04-08 06:51 | PC.NURSE ---
patients daughter Lena was contacted at shift change to inform her that patient is being d/c. this RN asked daughter if she would be able to come pick patient up and take him back to [place]. Daughter stated she will be here to get him soon.
[2024-04-08 07:14] VITALS: BP 147/99; PULSE 102; O2SAT 98
--- NOTE | 2024-04-08 07:17 | PC.NURSE ---
this RN attempted to call report to [facility] and there was no answer after the phone rang for over one minute. pt was d/c with daughter and d/c instructions, pt verbalized the understanding of instructions and was in stable condition upon leaving this facility with daughter.
== END 2024-04-08 07:19 | disposition home or self-care (01) ==
PROVIDERS: Emergency Provider Emergency Medicine; PCP Nurse Practitioner
DX: R20.2 Paresthesia of skin (principal); I80.8 Phlebitis and thrombophlebitis of other sites; Z87.891 Personal history of nicotine dependence; I10 Essential (primary) hypertension
CPT/HCPCS: 93971; 99284